=== PATIENT | male | born 1945 | race Caucasian/White ===

== ENCOUNTER 2020-11-18 13:47 | Outpatient (CLI) | payer MEDICARE, SELFPAY ==
--- NOTE | 2020-11-18 14:54 | ECG_ITS ---
Measurements Intervals [place] Rate: 65 P: 43 IA: 163 QRS: -66 QRSD: 157 T: 29 QT: 462 QTc: 483 Interpretive Statements SINUS RHYTHM ATRIAL PREMATURE COMPLEXES POSSIBLE LEFT ATRIAL ENLARGEMENT RIGHT BUNDLE BRANCH BLOCK LEFT ANTERIOR FASCICULAR BLOCK LEFT VENTRICULAR HYPERTROPHY AND ST-T CHANGE BASELINE ARTIFACT- I, II, III, AVR, AVL, AVF ABNORMAL ECG Electronically Signed On 11-18-2020 15:46:30 CDT by Dell Trejo D.O.
[2020-11-18 15:29] LABS: Anion Gap 6 mmol/L (8-16); Blood Urea Nitrogen 14 mg/dL (9-20); Calcium 9.3 mg/dL (8.4-10.2); Carbon Dioxide 30 mmol/L (22-30); Chloride 105 mmol/L (98-107); Estimated Glomerular Filt Rate > 60; Glucose 95 mg/dL (75-110); Potassium 3.8 mmol/L (3.4-5.0); Sodium 141 mmol/L (137-145)
== END 2020-11-18 13:48 | disposition home or self-care (01) ==
LOC: ANHSURGERY 13:48
PROVIDERS: Anesthesiology; PCP Family Medicine; Visit Provider Urology
DX: N39.3 Stress incontinence (female) (male) (principal); I45.2 Bifascicular block; Z51.81 Encounter for therapeutic drug level monitoring; Z79.899 Other long term (current) drug therapy; I10 Essential (primary) hypertension
CPT/HCPCS: 36415; 80048; 83036; 87086; 93005

== ENCOUNTER → 2020-12-03 00:47 | Outpatient (CLI) | payer MEDICARE, SELFPAY ==
[2020-12-03 16:46] LABS: SARS-CoV-2 RNA PCR Negative
== END ==
PROVIDERS: PCP Family Medicine; Visit Provider Urology
DX: Z01.812 Encounter for preprocedural laboratory examination (principal); Z20.822 Contact with and (suspected) exposure to COVID-19
CPT/HCPCS: C9803; U0003; U0005

== ENCOUNTER 2020-12-07 01:10 | Day surgery (SDC) | payer MEDICARE, SELFPAY ==
[2020-11-18 13:57] VITALS: BMI 37.0
[2020-11-18 14:16] VITALS: BP 148/81; PULSE 61; RESP 16; TEMP 37.1; O2SAT 100
[2020-12-07] VITALS (11 sets, daily range): BP systolic 119–149; BP diastolic 55–88; PULSE 77–97; RESP 15–21; TEMP 36.1–36.8; O2SAT 94–100; BMI 34.4
[2020-12-07] MEDS: LACTATED RINGERS 1,000 ML 30 ML IV CONT ×2 (10:31→17:26)
[2020-12-07] MEDS: metroNIDAZOLE 500 MG/ISO 100ML 500 MG/100 ML BAG 100 MG IVPB (10:39)
[2020-12-07] MEDS: GENTAMICIN SULFATE INJ 460 MG in DEXTROSE 5% 100 ML 97.05 MG IVPB (10:58)
--- NOTE | 2020-12-07 11:29 | WPDANESEPPF ---
Anes - Initial Pre Proc Eval Procedure: Operation Date: 12/07/20 12:00 Proposed Procedures p Insertion Inflatable Penile Implant - Felice Slater MD s Advanced Male Sling - Felice Slater MD Date/Time: 12/07/20 11:29 Surgeon: Felice Slater MD Pre Op Diagnosis: stress incontinence, erectile dysfunction Patient Data Age: 75 Gender: M Height: 1.79 m Weight: 110.6 kg Last Vital Signs Temp 98.7 F 11/18/20 14:16 Pulse 61 11/18/20 14:16 Resp 16 11/18/20 14:16 BP 148/81 H 11/18/20 14:16 Pulse Ox 100 11/18/20 14:16 Allergies Allergy/AdvReac Type Severity Reaction Status Date / Time No Known Allergies Allergy Verified 12/07/20 10:21 Home Medications Medication Instructions Recorded Confirmed Type cetirizine [Zyrtec] 10 mg PO DAILY 11/18/20 12/07/20 History fluticasone propionate [Flonase 1 spray INTRANASAL DAILY 11/18/20 12/07/20 History Allergy Relief] ibuprofen [Advil] 400 mg PO Q6H PRN 11/18/20 12/07/20 History lisinopril-hydrochlorothiazide 1 tablet PO DAILY 11/18/20 12/07/20 History pravastatin 20 mg PO DAILY 11/18/20 12/07/20 History levofloxacin 500 mg PO DAILY 12/07/20 12/07/20 History Patient hx anesthesia problems: none Family hx anesthesia problems: none PMFSH Past Medical History Medical History (Updated 12/07/20 @ 11:09 by Guillermo Gabriel MD) CAD (coronary artery disease) h/o ablation for SVT Hyperlipidemia Hypertension Surgical History Surgical History (Updated 12/07/20 @ 11:09 by Guillermo Gabriel MD) S/P prostatectomy Family History Family History (Updated 01/14/14 @ 07:13 by DOCTOR UNKNOWN) Other Cerebrovascular accident Social History Social History Smoking packs per day: 1 Smoking cigarettes per day: 20.0 Years smoked: 15 Smoking pack-years: 15.00 Smoking status: Former smoker Tobacco type: cigarettes Smoking end date: 05/20/95 Alcohol intake: current Drinks per week: 4 Living arrangements: with family Spiritual care concerns: No Anes - Eval Final PreProcedure Day of Procedure 12/07/20 11:29 Patient weight: obese Heart: regular rate and rhythm Lungs: clear to auscultation Airway: Mallampati scale class II Neurological: alert and oriented Last oral intake: >/= 8 hours Emergent: no Anesthetic plan: proceed Anesthesia type and monitoring: general LMA and standard monitoring Informed Consent: The patient's anesthetic plan and its attendant risks and benefits were discussed with the patient/family/POA. Questions were solicited and answers provided to the satisfaction of the patient/family/POA.
--- NOTE | 2020-12-07 12:01 | WPDHPUPDATE1 ---
History and Physical Update Update Date/Time: 12/07/20 12:01 History and Physical has been reviewed, including an updated exam of the patient. There are NO changes in the patient's condition. Risks, benefits, and alternatives have been discussed and questions answered. Patient agrees to proceed with procedure.
[2020-12-07] MEDS: BUPIVACAINE HCL 0.25% PF 30 ML VIAL INFILTRATE (13:56)
--- NOTE | 2020-12-07 17:45 | W.PM.PROC2 ---
Procedure Note - Detailed Date of Procedure 12/07/20 Pre-op Diagnosis stress incontinence, erectile dysfunction Post-op Diagnosis same Procedure Performed Placement of AMS Advance male sling, Penile prosthesis insertion, artificial erection with pharmacoagent, Cystoscopy. Surgeon Felice Slater MD Anesthesia general Description of Procedure Informed consent was obtained. The patient was taken to the operating room and given preoperative IV antibiotics with vancomycin and gentamicin, the patient has received oral Levaquin for the past 48 hours at home, and has done a 3-day Hibiclens wash. The patient was induced with general anesthesia. We then shaved, and the patient received a Betadine scrub followed by ChloraPrep. The patient was in the dorsal lithotomy position. Drapes were placed and then again prepped with Chloraprep. A 16-Sudanese Schaffer catheter was inserted. We made a 3 cm incision in the perineum. We then dissected down and identified the bulbar spongiosis muscle. The muscle layer was opened. We identified the urethra and it was mobilized laterally as well as proximally. We did take down the central tendon for approximately 2 cm. This allowed mobilization of the urethra. We then irrigated copiously.We secured the mesh to the spongiosum with 3-0 Vicryl suturewith the proximal end at point of dissection of central tendon. We used the Advance trocar passers to place the sling through the obturator foramen. There was good positioning noted. The catheter was removed. We then performed flexible cystoscopy. We inspected the urethra in the bladder. There was no injury from sling placement. We then tightened the sling. We did note that the sling did compress nicely. A 14-F Schaffer catheter was inserted.?We then irrigated copiously. We then closed bulbar spongiosis with a 2-0 Vicryl suture. We then tunneled the arms of the sling into the perineal incision. We performed multiple layers of closure with 3-0 Vicryl suture and the skin was closed with a 3-0 Vicryl horizontal mattress. We reapproximated the skin at the stab incisions for placement of the trocars with?4-0 Monocryl. We then performed a pharmacologically induced erection with dilute lidocaine. There was a symmetric, straight erection. We then made a penoscrotal 3 cm transverse incision. We dissected bluntly down to identify the corporal bodies taking great care not to injure the urethra. Stay sutures of 2-0 PDS were placed in the corporal body. We sharply opened the corpora. We then serially dilated up to a 12 Qiu dilator. of note there was a significant corporal fibrosis bilaterally. We then measured the corpora. Measurements were 9.5 cm proximally and 9.5 cm distally. We irrigated and there was no injury. We then performed an identical procedure on the contralateral side. Measurements were 9.5 cm proximal, 9.5 cm distal. Dilators were placed into the corpora bilaterally confirming that there was no crossover. We elected to place an AMS LGX device 18 cm + 1 cm of rear tip extenders. We again irrigated the corporal bodies. We then inserted the prosthesis. We inflated using a surrogate reservoir and the device sat nicely with tips in the mid glans. We then deflated. We then closed the pre-placed 2-0 PDS sutures. We again inflated using the surrogate reservoir with an excellent cosmetic result. We then made a right lower quadrant incision for approximately 2 cm. We bluntly dissected down to the external oblique fascia. The fascia was opened. We then the rectus muscle and created a space superiorly in the sub rectus. We emptied the bladder prior to our incision. We then irrigated copiously. We pre-placed 0 Vicryl sutures. We placed the reservoir in the sub rectus space. We fill it with 110 mL and there was no back pressure. We then left 85 mL in the reservoir. Our pre-placed external oblique fascia sutures were closed. We then made a subdartos pouch in the midline for the pump placement. It sat nicely in th
[2020-12-07] MEDS: fentaNYL CITRATE INJ (*CRX) 100 MCG/2 ML VIAL 25 MCG IV PUSH ×2 (18:12→18:18)
--- NOTE | 2020-12-07 19:17 | SUR.PHASEI ---
complains right eye pain right eye reddened,called ramses terrell ,orders for corneal abrasion protocol obtained.
[2020-12-07] MEDS: PROPARACAINE HCL 0.5% 15 ML OPHTH SOLN 1 DROP EACH EYE (19:25)
[2020-12-07] MEDS: ARTIFICIAL TEARS OPHTH SOLN 15 ML BOTTLE 1 DROP EACH EYE (19:28)
--- NOTE | 2020-12-07 19:40 | ADMGEN ---
This patient, Calixto Alanis, was admitted to Medical Room 346-01. Patient/family oriented to hospital policies and general routines including ID bracelet, bed and alarms, visiting hours, pain management, procedures, bathroom and other care routines, personal items, smoking policy, room service/diet, and visiting hours. Information on how to activate the Rapid Response Team has been discussed. Patient/Family are encouraged to report perceived risks to care and to ask questions if they do not understand what they are told or what they should do.
[2020-12-07] MEDS: MORPHINE SULFATE (*CRX) 2 MG/ML INJ IV PUSH ×2 (20:47→23:22)
[2020-12-07] MEDS: DEXTROSE 5%/0.45% SOD CHL 1,000 ML 125 ML IV CONT (20:48)
[2020-12-07] MEDS: DICLOFENAC SODIUM 0.1% OPHTH SOLN 2.5 ML BOTTLE 1 DROP EACH EYE (23:18)
[2020-12-08 00:26] VITALS: BP 137/65; PULSE 97; RESP 16; TEMP 36.6; O2SAT 100
[2020-12-08 01:17] VITALS: O2SAT 100
[2020-12-08 05:00] VITALS: BP 153/69; PULSE 94; RESP 16; TEMP 36.8; O2SAT 100
[2020-12-08] MEDS: DEXTROSE 5%/0.45% SOD CHL 1,000 ML 125 ML IV CONT (05:26)
[2020-12-08] MEDS: MORPHINE SULFATE (*CRX) 2 MG/ML INJ IV PUSH ×2 (05:26→08:20)
[2020-12-08] MEDS: DICLOFENAC SODIUM 0.1% OPHTH SOLN 2.5 ML BOTTLE 1 DROP EACH EYE (05:28)
[2020-12-08 07:23] VITALS: BP 144/63; PULSE 84; RESP 18; TEMP 36.2; O2SAT 99
[2020-12-08] MEDS: DOCUSATE SODIUM 100 MG CAPSULE PO (08:22)
[2020-12-08] MEDS: PRAVASTATIN SODIUM 20 MG TABLET PO (08:23)
[2020-12-08] MEDS: hydroCHLOROthiazide 25 MG TABLET PO (08:23)
[2020-12-08] MEDS: lisinopriL 20 MG TABLET PO (08:23)
[2020-12-08] MEDS: levoFLOXacin 500 MG TABLET PO (08:23)
[2020-12-08] MEDS: LORATADINE 10 MG TABLET PO (08:23)
[2020-12-08] MEDS: ONDANSETRON INJ 4 MG/2 ML VIAL IV PUSH (08:58)
--- NOTE | 2020-12-08 09:05 | WPDUROPN2 ---
Progress Note: A&P Assessment and Plan (1) Erectile dysfunction: Code(s): N52.9 - Male erectile dysfunction, unspecified Status: Acute Assessment and Plan: Patient will keep scrotal support applied with penis in an upward facing direction to reduce edema. Penile implant is partially inflated to promote optimal healing. Nicole removed, encouraged fluids to induce independent urination. Encourage patient to eat and drink fluids to see if he can tolerate his diet. Up to chair. If he tolerates diet and is able to urinate, will plan to discharge home this afternoon. (2) Stress incontinence: Code(s): N39.3 - Stress incontinence (female) (male) Status: Acute Subjective Subjective Date/Time Seen: 12/08/20 09:05 POD #1 Placement of AMS Advance male sling, Penile prosthesis insertion, artificial erection with pharmacoagent, Cystoscopy. Patient doing well, he is up in the chair this morning, slightly nauseated and having pain, which seems to be tolerable with pain medications. He hasn't attempted breakfast at this point. I removed his nicole and dressing, all incisions are approximated, no drainage or edema/redness present. He has a scrotal support applied. Review of Systems Cardiovascular: Cardiovascular: Reports no additional cardiovascular complaints and Denies chest pain Respiratory: Respiratory: Reports no additional respiratory complaints Gastrointestinal: Gastrointestinal: Reports abdominal pain, Reports nausea and Denies vomiting Genitourinary: Genitourinary: Denies hematuria and Denies flank pain Exam Resp: Effort & Inspection: normal respiratory effort Cardio: Rate: regular rate GI: Inspection: incision (all are well approximated, no drainage, edema or redness) GI Palp: Yes Soft to palpation and Yes Tenderness to palpation present (GI) : General: Yes no CVA tenderness Urinary Catheter: Urinary Catheter: patent and draining and urine clear Extrem: General: no edema Objective Data Vital Signs Vital Signs: Vital Signs - 24 hr 12/07/20 10:22 12/07/20 17:26 12/07/20 17:40 Temperature 97.0 F L 98.3 F Pulse Rate 77 83 94 Respiratory Rate 18 15 21 H Blood Pressure 141/69 H 127/68 121/88 Pulse Oximetry 98 100 95 12/07/20 17:55 12/07/20 18:10 12/07/20 18:25 Temperature Pulse Rate 88 90 87 Respiratory Rate 19 18 16 Blood Pressure 121/88 125/55 L 125/55 L Pulse Oximetry 94 98 97 12/07/20 18:40 12/07/20 18:55 12/07/20 19:33 Temperature Pulse Rate 92 93 90 Respiratory Rate 20 19 16 Blood Pressure 119/70 131/55 L 131/66 Pulse Oximetry 99 100 98 12/07/20 20:00 12/07/20 21:47 12/08/20 00:26 Temperature 97.4 F L 97.9 F Pulse Rate 97 97 Respiratory Rate 16 16 Blood Pressure 149/69 H 137/65 Pulse Oximetry 98 100 100 12/08/20 01:17 12/08/20 05:00 12/08/20 07:23 Temperature 98.3 F 97.2 F L Pulse Rate 94 84 Respiratory Rate 16 18 Blood Pressure 153/69 H 144/63 H Pulse Oximetry 100 100 99 Intake/Output Intake/Output: Intake & Output 12/05/20 12/06/20 12/07/20 12/08/20 23:59 23:59 23:59 23:59 Intake Total 811.5 1450 Output Total 1440 400 Balance -628.5 1050 Meds/Results Medications: Active Medications Generic Name Dose Route Start Last Admin Trade Name Freq PRN Reason Stop Dose Admin Hydrocodone Bitart/Acetaminophen 1 tab 12/07/20 17:38 Hydrocodone/Acetaminophen (*Crx) 5-325 Mg Tablet PO Q4H PRN Pain Rated 1-6 Artificial Tears 1 drop 12/07/20 19:15 12/07/20 19:28 Artificial Tears Ophth Soln 15 Ml Bottle EACH EYE 1 drop Q2H PRN Administration Dry Eye(s) Diclofenac Sodium 1 drop 12/07/20 22:00 12/08/20 05:28 Diclofenac Sodium 0.1% Ophth Soln 2.5 Ml Bottle EACH EYE 12/11/20 22:01 1 drop Q8HR CONSUELO Administration Docusate Sodium 100 mg 12/08/20 09:00 12/08/20 08:22 Docusate Sodium 100 Mg Capsule PO 100 mg BID CONSUELO Administration Fentanyl Citrate 25 mcg 12/07/20 11:30
[2020-12-08 11:23] VITALS: BP 140/60; PULSE 86; RESP 18; TEMP 36.7; O2SAT 100
[2020-12-08] MEDS: HYDROcodone/acetaminophen (*CRX) 5-325 MG TABLET 1 TAB PO (11:24)
[2020-12-08] MEDS: GENTAMICIN 80MG/SOD CHL 50 ML 80 MG/50 ML BAG 100 MG IVPB (14:11)
[2020-12-08 14:12] VITALS: BP 132/59; PULSE 90; RESP 20; TEMP 37.2; O2SAT 98
== END 2020-12-08 16:16 | disposition home or self-care (01) ==
LOC: ANHSURGERY 09:58 → ANH3MED 19:38
PROVIDERS: PCP Family Medicine; Visit Provider Urology
PROC: (CPT 54405; principal; 2020-12-07 12:00)
PROC: (CPT 53440; 2020-12-07 12:00)
DX: N39.3 Stress incontinence (female) (male) (principal); N52.9 Male erectile dysfunction, unspecified; I25.10 Atherosclerotic heart disease of native coronary artery without angina pectoris; I10 Essential (primary) hypertension; E78.5 Hyperlipidemia, unspecified; Z87.891 Personal history of nicotine dependence; E66.9 Obesity, unspecified; Z68.34 Body mass index [BMI] 34.0-34.9, adult
CPT/HCPCS: 54405; 54235; 53440; A9270; C1771; C9803; J1100; J1170; J1580; J2250; J2270; J2405; J2704; J3010; J3370; J7030; J7120; U0003; U0005

== ENCOUNTER 2022-02-27 15:11 | Outpatient (CLI) | payer MEDICARE, SELFPAY ==
--- NOTE | ~2022-02-27 | XR_ITS ---
EXAMINATION: XR chest 2V DATE: 02/27/2022 15:35 INDICATION: Shortness of breath TECHNIQUE: PA and lateral views of the chest are obtained. COMPARISON: 05/30/2018 FINDINGS: There are airspace opacities of the right lung base. No pleural effusion or pneumothorax. T he cardiomediastinal silhouette is normal. There is mild thoracic spondylosis. IMPRESSION: 1. Right basilar airspace opacity which may be infectious or inflammatory versus atelectasis or less likely malignancy. Recommend followup radiographs in 10-14 days after appropriate therapy to evaluate for improvement/resolution. Reviewed, dictated and finalized at location A. IMPRESSION: 1. Right basilar airspace opacity which may be infectious or inflammatory versu s atelectasis or less likely malignancy. Recommend followup radiographs in 10-1 4 days after appropriate therapy to evaluate for improvement/resolution.
== END 2022-02-27 15:12 | disposition home or self-care (01) ==
PROVIDERS: PCP Family Medicine; Visit Provider Family Medicine
DX: R06.02 Shortness of breath (principal)
CPT/HCPCS: 71046

== ENCOUNTER 2022-02-28 15:41 | Inpatient (IN) | payer MEDICARE, SELFPAY ==
[2022-02-28] VITALS (11 sets, daily range): BP systolic 147–183; BP diastolic 53–75; PULSE 40–94; RESP 16–20; TEMP 36.4–36.9; O2SAT 94–100; BMI 36.6
--- NOTE | ~2022-02-28 | XR_ITS ---
EXAMINATION: XR chest 2V DATE: 03/03/2022 11:36 INDICATION: Pacer placement. TECHNIQUE: Frontal and lateral views of the chest were obtained. COMPARISON: Chest single view 03/02/2022 FINDINGS: A calcified left lung nodule is consistent with old granulomatous disease. No pleural effus ion or pneumothorax. The heart size is normal. There is a left chest wall pacer with leads in the rig ht atrium and right ventricle. IMPRESSION: 1. No acute cardiopulmonary disease. Reviewed, dictated and finalized at location A.
--- NOTE | ~2022-02-28 | US_ITS ---
EXAMINATION: US venous doppler [facility] DATE: 03/02/2022 16:41 INDICATION: Bilateral lower limb edema TECHNIQUE: Perales scale images without and with compression and Doppler images of the bilateral lower e xtremity veins were obtained. COMPARISON: None FINDINGS: The right common femoral vein, profunda femoral vein, femoral vein, popliteal vein, peroneal trunk, p osterior tibial veins, and greater saphenous vein are patent. The left common femoral vein, profunda femoral vein, femoral vein, popliteal vein, peroneal trunk, po sterior tibial veins, and greater saphenous vein are patent. IMPRESSION: 1. Patent bilateral lower extremity veins. No evidence of deep venous thrombosis. Reviewed, dictated and finalized at location F. IMPRESSION: 1. Patent bilateral lower extremity veins. No evidence of deep venous thrombosi s.
--- NOTE | ~2022-02-28 | XR_ITS ---
EXAMINATION: XR chest 2V Exam Date/Time: 02/28/2022 16:30 CDT HISTORY: EDEMA TO BOTH LEGS AND SOB X 3 DAYS. HX HTN, CAD Comparison: CT abdomen pelvis 07/29/2018. X-ray chest 02/27/2022 at 3:32 PM. RESULT: Lines, tubes, and devices: None. Lungs and pleura: Improving aeration of the right lung base. Persistent diffuse reticulonodular opac ities. Cardiomediastinal silhouette: Stable. Other: No acute osseous or upper abdominal finding. IMPRESSION: Improving right lung base aeration indicating a likely component of atelectasis. Underlying diffuse r eticulonodular opacities may reflect interstitial edema and/or bronchiolitis. Reviewed, dictated and finalized at location K. IMPRESSION: Improving right lung base aeration indicating a likely component of atelectasis . Underlying diffuse reticulonodular opacities may reflect interstitial edema a nd/or bronchiolitis.
--- NOTE | ~2022-02-28 | XR_ITS ---
XR chest 1V portable 03/02/2022 11:43 Indication: Pacemaker insertion Procedure: AP portable chest Comparison: 02/28/2022 Findings: Cardiomegaly. Prominent central pulmonary vascularity. There are are perihilar and basilar interstitial infiltrates with peribronchial thickening. No pleural effusion or pneumothorax. Pacemake r leads in the right atrium and right ventricle respectively. Impression: 1: Bilateral perihilar and basilar interstitial infiltrates which may reflect mild edema or atypical pneumonia. Reviewed, dictated and finalized at location A. Impression: 1: Bilateral perihilar and basilar interstitial infiltrates which may reflect m ild edema or atypical pneumonia.
--- NOTE | ~2022-02-28 | CT_ITS ---
EXAMINATION: CTA chest PE protocol DATE: 02/28/2022 18:27 INDICATION: sob TECHNIQUE: Computed tomography angiography (CTA) of the chest was performed with 100 mL Omnipaque-350 intravenous contrast timed to evaluate the pulmonary arteries. Coronal maximum intensity projection 3D-reconstructions were created by the technologist. The dose-length product (DLP) was 880.04 mGy-cm. Automated exposure control and iterative reconstruction technique were employed. COMPARISON: X-ray chest, same date. FINDINGS: Lung parenchyma and airways: Bibasilar dependent atelectasis/scar. Bilateral lower lung groundglass o pacities with mild interlobular septal thickening. Pleura: Small volume bilateral pleural fluid collections. Thoracic inlet, axillae and chest wall: Bilateral gynecomastia. Thoracic aorta: Mild arch calcification. Mediastinum: Normal. Heart and pericardium: Mild cardiomegaly. Aortic valve calcification. Coronary artery calcifications: Moderate. Upper abdomen: No significant finding. Bones: No acute osseous finding. Pulmonary arteries: Study quality: Adequate. No pulmonary emboli detected. IMPRESSION: No CT evidence of acute pulmonary embolus. Pulmonary findings most consistent with mild interstitial edema. Small bilateral effusions. Reviewed, dictated and finalized at location K. IMPRESSION: No CT evidence of acute pulmonary embolus. Pulmonary findings most consistent w ith mild interstitial edema. Small bilateral effusions.
--- NOTE | 2022-02-28 15:42 | ECG_ITS ---
Measurements Intervals [place] Rate: 58 P: -5 VT: 208 QRS: -62 QRSD: 144 T: 102 QT: 419 QTc: 414 Interpretive Statements SINUS BRADYCARDIA WITH FREQUENT SUPRAVENTRICULAR PREMATURE COMPLEXES AND NONCONDUCTED APCS. POSSIBLE LEFT ATRIAL ENLARGEMENT [-0.1mV P WAVE IN V1/V2] RIGHT BUNDLE BRANCH BLOCK [120+ ms QRS DURATION, UPRIGHT V1, 40+ ms S IN I/aVL/V4/V5/V6] LEFT ANTERIOR FASCICULAR BLOCK [QRS AXIS <= -45, QR IN I, RS IN II] LEFT VENTRICULAR HYPERTROPHY AND ST-T CHANGE [VOLTAGE CRITERIA PLUS ST/T ABNORMALITY] POOR R-WAVE PROGRESSION, POSSIBLE OLD ANTERIOR MYOCARDIAL INFARCTION COMPARED TO ECG 11/18/2020 15:05:30 SINUS BRADYCARDIA NOW PRESENT Electronically Signed On 02-28-2022 19:54:17 CDT by Ivanna Muir M.D.
[2022-02-28 16:19] LABS: Basophils Percent Auto 0.5 % (0.2-1.2); Eosinophils Absolute Auto 0.1 K/mm3 (0-0.3); Eosinophils Percent Auto 1.6 % (0-4.4); Hematocrit 42.9 % (42.0-52.0); Hemoglobin 14.1 g/dL (14.0-18.0); Immature Granulocyte Absolute 0.03 K/mm3 (0.00-0.031); Immature Granulocyte Percent A 0.5 % (0-0.5); Lymphocytes Absolute Auto 1.32 K/mm3 (0.9-3.2); Mean Corpuscular HGB Conc 32.9 g/dl (32-36); Mean Corpuscular Hemoglobin 31.8 pg (26-34); Mean Corpuscular Volume 96.6 fl (80-100); Mean Platelet Volume 10.5 fl (7.4-10.4); Monocytes Absolute Auto 0.6 K/mm3 (0.1-0.6); Monocytes Percent Auto 9.2 % (2.6-8.5); Neutrophils Absolute Auto 4.2 K/mm3 (1.3-6.7); Neutrophils Percent Auto 67.2 % (45.5-73.1); Platelet Count Result 174 k/mm3 (150-375); Red Blood Count 4.44 M/mm3 (4.6-6.20); Red Cell Distribution Width 13.2 % (11.5-14.5); White Blood Count 6.3 K/mm3 (4.5-10.0)
[2022-02-28 16:31] LABS: Alanine Aminotransferase 30 U/L (6-50); Albumin Level 4.2 g/dL (3.5-5.1); Alkaline Phosphatase 61 U/L (38-126); Anion Gap 8 mmol/L (8-16); Aspartate Amino Transferase 31 U/L (17-59); Blood Urea Nitrogen 16 mg/dL (9-20); Calcium 9.3 mg/dL (8.4-10.2); Carbon Dioxide 28 mmol/L (22-30); Chloride 103 mmol/L (98-107); Estimated CRCL calculation 82 ml/min; Estimated Glomerular Filt Rate > 60; Glucose 131 mg/dL (65-110); Potassium 4.1 mmol/L (3.4-5.0); Sodium 139 mmol/L (137-145)
--- NOTE | 2022-02-28 17:03 | ED.SOB ---
HPI - SOB/Dyspnea General Chief Complaint: Shortness of Breath/Dyspnea Stated Complaint: sob, leg swelling - recent mi Time Seen by Provider: 02/28/22 16:13 Source: patient and RN notes reviewed Mode of arrival: ambulatory Limitations: no limitations History of Present Illness HPI Narrative: This is a 76 year old male with history of hyperlipidemia and hypertension who presents for evaluation of shortness of breath and leg swelling. He states over 1 week ago he was having shortness of breath and chest heaviness with exertion. He thought it was due to allergies and he tested negative for COVID. He developed bilateral leg swelling 3 days ago with orthopnea, shortness of breath with exertion. He was evaluated by his PCP yesterday, and he was started on lasix and potassium. MD elicited complaint: shortness of breath Related Data Home Medications Medication Instructions Recorded Confirmed cetirizine 10 mg tablet (Zyrtec) 10 mg PO DAILY PRN Allergy Symptoms 11/18/20 12/07/20 fluticasone propionate 50 1 spray intranasal DAILY PRN 11/18/20 12/07/20 mcg/actuation nasal Congestion spray,suspension (Flonase Allergy Relief) lisinopril 20 1 tablet PO DAILY 11/18/20 12/07/20 mg-hydrochlorothiazide 25 mg tablet pravastatin 20 mg tablet 20 mg PO DAILY 11/18/20 12/07/20 Allergies Allergy/AdvReac Type Severity Reaction Status Date / Time No Known Allergies Allergy Verified 12/07/20 20:22 Review of Systems Review of Systems: All systems reviewed & are unremarkable except as noted in HPI and below Constitutional: Constitutional: Denies chills, Denies fatigue and Denies fever(s) ENT: Denies nasal congestion and Denies sore throat Cardiovascular: Cardiovascular: Reports chest pain, Reports leg edema, Denies radiating jaw, neck or arm pain and Reports orthopnea Respiratory: Respiratory: Reports dyspnea and Reports dyspnea on exertion PMFSH Past Medical History Medical History CAD (coronary artery disease) h/o ablation for SVT Hyperlipidemia Hypertension Surgical History Surgical History (Updated 12/07/20 @ 20:37 by Leila Fong, TYSON) S/P prostatectomy Family History Family History Other Cerebrovascular accident Social History Social History (Updated 12/07/20 @ 20:37 by Leila Fong RN) Smoking packs per day: 1 Smoking cigarettes per day: 20.0 Years smoked: 15 Smoking pack-years: 15.00 Smoking status: Former smoker Tobacco type: cigarettes Alcohol intake: current Drinks per week: 4 Substance use: never Gender identity (if verbalized by the patient): Male Spiritual care concerns: No Exam Const: General: no acute distress and alert Nutritional Appearance: well nourished Orientation/consciousness: patient oriented x3 HENMT: Head: normal to inspection Eyes: EOM: EOMs intact bilaterally Resp: Effort & Inspection: normal respiratory effort Auscultation: crackles bilateral at the base Cardio: Rate: bradycardic Rhythm: regular rhythm Heart sounds: no murmurs GI: GI Palp: Yes Soft to palpation, No Tenderness to palpation present (GI), No Guarding due to palpation present (GI) and No Rigid due to palpation Auscultation: normal bowel sounds Skin: General skin exam: normal color Rashes: no rashes Wounds: no wounds Neuro: General: patient oriented x3, moves all extremities and CN's II-XI intact bilaterally Cranial nerves: Yes Nystagmus not present Speech: normal speech Extrem: General: edema bilateral (pedal and leg) Psych: Mental Status: mental status grossly normal Affect: normal affect Attitude: cooperative Course Reevaluation(s) Reevaluation #1: I Discussed case with Dr. Castillo who accepts patient to hospitalist. Dr. Muir agrees to consult and recommends lasix 40 mg BID. I Discussed EKG. PAtient understands and he has no ad
[2022-02-28 17:35] LABS: INR 1.2; Partial Thromboplastin Time 32.4 SECONDS (22.3-36.8); Prothrombin Time 14.3 Seconds (11.1-14.7)
[2022-02-28 17:40] LABS: NT Pro B Type Natriuretic Pept 1180 pg/mL (5-100)
[2022-02-28 17:43] LABS: Troponin I < 0.012 ng/mL (0.000-0.034)
[2022-02-28 17:44] LABS: D Dimer 0.76 ug/mL (<0.48)
--- NOTE | 2022-02-28 19:19 | PM.IMHP ---
H&P: HPI History of Present Illness Date/Time: 02/28/22 19:19 Chief Complaint: 76 years old male with past medical history of hypertension hyperlipidemia erectile dysfunction presented to the hospital with shortness of breath started 1 week ago worsening with activity associated with orthopnea patient also complained of bilateral lower extremity swelling worsening gradually associated with chest tightness with activity EKG in the ER showed bradycardia with concern for heart block CT scan of the chest shows concern pulmonary edema BNP was significantly elevated cardiology was consulted patient was started on IV Lasix patient will admit to the hospital for further evaluation treatment of shortness of breath and bradycardia Review of Systems Review of Systems: Twelve system review was negative except above PMFSH Past Medical History Medical History (Updated 02/28/22 @ 19:23 by Jo Scott MD) CAD (coronary artery disease) h/o ablation for SVT Hyperlipidemia Hypertension Surgical History Surgical History (Updated 12/07/20 @ 20:37 by Leila Fong RN) S/P prostatectomy Family History Family History Other Cerebrovascular accident Social History Social History (Updated 12/07/20 @ 20:37 by Leila Fnog RN) Smoking packs per day: 1 Smoking cigarettes per day: 20.0 Years smoked: 15 Smoking pack-years: 15.00 Smoking status: Former smoker Tobacco type: cigarettes Alcohol intake: current Drinks per week: 4 Substance use: never Gender identity (if verbalized by the patient): Male Spiritual care concerns: No Meds Home Medications and Allergies Home Medications Medication Instructions Recorded Confirmed Type cetirizine 10 mg tablet (Zyrtec) 10 mg PO DAILY PRN Allergy Symptoms 11/18/20 12/07/20 History fluticasone propionate 50 1 spray intranasal DAILY PRN 11/18/20 12/07/20 History mcg/actuation nasal Congestion spray,suspension (Flonase Allergy Relief) lisinopril 20 1 tablet PO DAILY 11/18/20 12/07/20 History mg-hydrochlorothiazide 25 mg tablet pravastatin 20 mg tablet 20 mg PO DAILY 11/18/20 12/07/20 History cephalexin 500 mg capsule 500 mg PO Q8H #21 caps 12/08/20 Rx docusate sodium 100 mg capsule 100 mg PO BID #14 caps 12/08/20 Rx hydrocodone 5 mg-acetaminophen 325 1 tablet PO Q6H PRN pain #20 tabs 12/08/20 Rx mg tablet Allergies Allergy/AdvReac Type Severity Reaction Status Date / Time No Known Allergies Allergy Verified 12/07/20 20:22 Vital Signs Vital Signs - 24 hr 02/28/22 15:48 02/28/22 17:12 Temperature 97.7 F Pulse Rate 78 57 L Respiratory Rate 20 18 Blood Pressure 175/56 H 147/63 H Pulse Oximetry 99 100 Oxygen Delivery Room Air Exam Narrative: GENERAL: In acute distress. HEAD: Normocephalic, atraumatic. NECK: Supple. No adenopathy, no masses. RESPIRATORY: Decreased air entry bilateral positive crackles CARDIOVASCULAR: Regular rate and rhythm without murmurs, rubs, or gallops. Peripheral pulses 2+ and equal bilaterally. ABDOMINAL: Soft, nontender, nondistended, no hepatosplenomegaly. Normoactive BS. MUSCULOSKELETAL: Positive lower extremity edema SKIN: Warm, dry, normal color. No rashes. NEURO: A&O X3. Speech clear. Cranial nerves intact also all extremities PSYCHIATRIC: Appropriate mood and affect. Normal interaction. H&P: Results Labs Labs: Short CBC 02/28/22 Range/Units 16:14 WBC 6.3 (4.5-10.0) K/mm3 Hgb 14.1 (14.0-18.0) g/dL Hct 42.9 (42.0-52.0) % Plt Count 174 (150-375) k/mm3 BMP 02/28/22 16:14 Sodium 139 Potassium 4.1 Chloride 103 Carbon Dioxide 28 BUN 16 Creatinine 0.90 Glucose 131 H Calcium 9.3 Cardiac Enzymes 02/28/22 Range/Units 16:14 Troponin I < 0.012 (0.000-0.034) ng/mL Liver Function 02/28/22 Range/Units 16:14 Total Bilirubin 1.0 (0.2-1.3) mg/dL AST 31 (17-59) U/L
[2022-02-28 20:12] LABS: Magnesium 2.1 mg/dL (1.6-2.3)
[2022-02-28 20:28] LABS: Troponin I 0.016 ng/mL (0.000-0.034)
[2022-02-28 20:32] LABS: SARS-CoV-2 RNA PCR Negative
[2022-02-28] MEDS: SIMVASTATIN 20 MG TABLET PO (21:46)
[2022-02-28] MEDS: ASPIRIN 81 MG ENTERIC TABLET PO (21:46)
--- NOTE | 2022-02-28 22:15 | ADMGEN ---
This patient, Calixto Alanis, was admitted to Medical Room 259-. Patient/family oriented to hospital policies and general routines including ID bracelet, bed and alarms, visiting hours, pain management, procedures, bathroom and other care routines, personal items, smoking policy, room service/diet, and visiting hours. Information on how to activate the Rapid Response Team has been discussed. Patient/Family are encouraged to report perceived risks to care and to ask questions if they do not understand what they are told or what they should do.
--- NOTE | 2022-02-28 22:27 | ECG_ITS ---
Measurements Intervals [place] Rate: 49 P: OR: 0 QRS: -68 QRSD: 150 T: 73 QT: 502 QTc: 453 Interpretive Statements 2:1 AV BLOCK ABERRANTLY CONDUCTED ATRIAL PREMATURE COMPLXS RIGHT BUNDLE BRANCH BLOCK [120+ ms QRS DURATION, UPRIGHT V1, 40+ ms S IN I/aVL/V4/V5/V6] COMPARED TO ECG 02/28/2022 16:09:57 2:1 AV BLOCK IS PRESENT Electronically Signed On 03-01-2022 14:37:38 CDT by Rafia Arango M.D.
[2022-02-28] MEDS: FUROSEMIDE INJ 40 MG/4 ML VIAL IV PUSH (22:44)
[2022-02-28 22:54] LABS: Troponin I 0.019 ng/mL (0.000-0.034)
--- NOTE | 2022-02-28 23:41 | PC.NURSE ---
Pt Calixto Alanis will be transferred to IMU Room 213 for closer monitoring. Report given to Shanae in IMU.
--- NOTE | 2022-02-28 23:54 | PC.NURSE ---
Transferred pt by bed to IMU Room 214.
[2022-03-01] VITALS (14 sets, daily range): BP systolic 154–167; BP diastolic 50–72; PULSE 42–66; RESP 14–20; TEMP 36.3–37.2; O2SAT 95–100
--- NOTE | 2022-03-01 00:50 | PC.NURSE ---
This patient, Calixto Alanis, was received from [[id number] ] on 02/28/22 at 2347. Patient/family oriented to unit policies and routines
[2022-03-01] MEDS: ALBUTEROL SULFATE NEB 2.5 MG/3 ML INH INHALATION (02:00)
[2022-03-01 04:53] LABS: Basophils Absolute Auto 0.1 K/mm3 (0.0-0.1); Basophils Percent Auto 0.6 % (0.2-1.2); Eosinophils Absolute Auto 0.1 K/mm3 (0-0.3); Hematocrit 44.8 % (42.0-52.0); Hemoglobin 15.1 g/dL (14.0-18.0); Immature Granulocyte Absolute 0.03 K/mm3 (0.00-0.031); Immature Granulocyte Percent A 0.3 % (0-0.5); Lymphocytes Absolute Auto 1.83 K/mm3 (0.9-3.2); Lymphocytes Percent Auto 20.9 % (18.3-44.2); Mean Corpuscular HGB Conc 33.7 g/dl (32-36); Mean Corpuscular Hemoglobin 32.3 pg (26-34); Mean Corpuscular Volume 95.9 fl (80-100); Mean Platelet Volume 10.8 fl (7.4-10.4); Monocytes Absolute Auto 0.9 K/mm3 (0.1-0.6); Monocytes Percent Auto 10.3 % (2.6-8.5); Neutrophils Absolute Auto 5.9 K/mm3 (1.3-6.7); Neutrophils Percent Auto 66.9 % (45.5-73.1); Platelet Count Result 204 k/mm3 (150-375); Red Blood Count 4.67 M/mm3 (4.6-6.20); Red Cell Distribution Width 13.2 % (11.5-14.5); White Blood Count 8.8 K/mm3 (4.5-10.0)
[2022-03-01 05:14] LABS: Alanine Aminotransferase 28 U/L (6-50); Albumin Level 4.2 g/dL (3.5-5.1); Alkaline Phosphatase 68 U/L (38-126); Anion Gap 6 mmol/L (8-16); Aspartate Amino Transferase 28 U/L (17-59); Bilirubin,Total 1.2 mg/dL (0.2-1.3); Blood Urea Nitrogen 15 mg/dL (9-20); Calcium 9.5 mg/dL (8.4-10.2); Carbon Dioxide 32 mmol/L (22-30); Chloride 100 mmol/L (98-107); Estimated CRCL calculation 73 ml/min; Estimated Glomerular Filt Rate > 60; Glucose 128 mg/dL (65-110); Sodium 138 mmol/L (137-145)
--- NOTE | 2022-03-01 08:00 | ECHO_ITS ---
Patient Info Name: Calixto Alanis Age: 76 years : 1945 Gender: Male Ht: 71 in Wt: 266 lbs BSA: 2.50 m2 HR: 43 bpm BP: 158 / 50 mmHg Heart Rhythm: Indeterminant Technical Quality: Fair Exam Date: 03/01/2022 11:39 AM Exam Location: [facility] Pulmonary Exam Room: 214 Patient Status: Inpatient Admit Date: 02/28/2022 Staff Ordering Physician: Jo Scott M.A., MD Package Lift Operator: Vani Williamson RDCS Attending Provider: Jo Scott M.A., MD Referring Physician: Fabricio CHUNG; Exam Type: CA echo dop color flow w con Study Info Indications - CHF Complete two-dimensional, color flow and Doppler transthoracic echocardiogram is performed with contrast to opacify the left ventricle and to improve the deliniation of the left ventricle endocardial borders. Contrast/Agitated Saline Contrast/Ag. Saline: Definity Amount: 2.00 ml Administered By: Vani Williamson [facility] Existing IV Access: Yes IV Access Condition: patent with no signs of infiltration Summary 1. Normal with mild concentric hypertrophy. Good systolic function of segments. Calculated ejection fraction 59%, visually ejection fraction 55-60%. Grade 2 diastolic dysfunction is present. 2. Left atrial chamber dimension is moderately enlarged. 3. There is mild aortic valve calcification with mild aortic insufficiency but no stenosis. 4. There is mild mitral valve regurgitation. 5. Mild pulmonary hypertension, estimated pulmonary arterial systolic pressure is 48 mmHg. 6. There is mild pulmonic regurgitation. 7. Rhythm indeterminate. 8. Technically difficult study, definity echo contrast used. Left Ventricle Left ventricular chamber dimension is normal. Left ventricular systolic function is normal, estimated at 55-60%. There is mildly increased left ventricular wall thickness. Left ventricular septal wall motion is normal. The left ventricular diastolic function is grade II diastolic dysfunction. Right Ventricle Right ventricular chamber dimension is normal. Right ventricular systolic function is normal. Left Atria Left atrial chamber dimension is moderately enlarged. Right Atria Right atrial chamber dimension is normal. Aortic Valve The aortic valve is trileaflet. There is no aortic valve sclerosis. There is no aortic valve stenosis. There is mild aortic valve regurgitation. There is mild aortic valve calcification with mild aortic insufficiency but no stenosis. Pulmonic Valve The pulmonic valve is normal. There is no pulmonic valve stenosis. There is mild pulmonic regurgitation. Mitral Valve The mitral valve has normal leaflets. There is no mitral valve stenosis. There is mild mitral valve regurgitation. Tricuspid Valve The tricuspid valve leaflets are normal. There is no significant tricuspid valve stenosis. There is trace tricuspid valve regurgitation. Mild pulmonary hypertension, estimated pulmonary arterial systolic pressure is 48 mmHg. Pericardium/Pleural The pericardium appears normal. There is no pericardial effusion. Inferior Vena Cava Normal inferior vena cava with >50% collapse upon inspiration consistent with Empty right atrial pressure, 10 mmHg. Aorta The aortic root size at the sinus of Valsalva is normal. The prox ascending aorta size is normal. Left Ventricular Outflow Tract Name
--- NOTE | 2022-03-01 08:25 | ECG_ITS ---
Measurements Intervals [place] Rate: 48 P: 49 WV: 211 QRS: -63 QRSD: 150 T: 46 QT: 557 QTc: 500 Interpretive Statements 2:1 AV BLOCK ABERRANTLY CONDUCTED ATRIAL PREMATURE COMPLXS POSSIBLE LEFT ATRIAL ENLARGEMENT [-0.1mV P WAVE IN V1/V2] LEFT ANTERIOR FASCICULAR BLOCK [QRS AXIS <= -45, QR IN I, RS IN II] LEFT VENTRICULAR HYPERTROPHY AND ST-T CHANGE [VOLTAGE CRITERIA PLUS ST/T ABNORMALITY] INFERIOR MYOCARDIAL INFARCTION , PROBABLY OLD COMPARED TO ECG 02/28/2022 22:37:56 NO SIGNIFICANT CHANGE Electronically Signed On 03-01-2022 15:53:46 CDT by Rafia Arango M.D.
[2022-03-01] MEDS: SIMVASTATIN 20 MG TABLET PO (08:55)
[2022-03-01] MEDS: FUROSEMIDE INJ 40 MG/4 ML VIAL IV PUSH ×2 (08:55→16:33)
[2022-03-01] MEDS: ASPIRIN 81 MG ENTERIC TABLET PO (08:55)
[2022-03-01] MEDS: ENOXAPARIN 40 MG/0.4 ML SYRINGE SUB-Q (08:55)
[2022-03-01] MEDS: PERFLUTREN LIPID MICROSPHERES 1.5 ML VIAL DILUTED TO 10 ML TOTAL VOLUME IV PUSH (11:55)
--- NOTE | 2022-03-01 12:03 | PM.IMPN ---
Progress Note: A&P Assessment and Plan (1) Bradycardia: Code(s): R00.1 - Bradycardia, unspecified Status: Acute Assessment and Plan: Patient found to have bradycardia on admission. He has a hx of SVT s/p ablation 2013. He does not have known CAD. He is not on rate lowering agents. He denies JOSE or symptoms of such. 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 EKG on admission showing similar findings except now sinus bradycardia with frequent supraventricular PVC and nonconducted PACs. Cardiology consult. Check TSH. Check apnea link. Continue tele (2) CHF (congestive heart failure): Code(s): I50.9 - Heart failure, unspecified Status: Acute Assessment and Plan: Patient with increasing pedal edema and was started on lasix a few days ago. Most likely related to acute CHF exacerbation. Trop negative x3. Echo ordered. Cardiology consulted. Daily weights, strict intake and outputs, CHF teaching. Contineu IV Lasix. (3) Hypertension: Code(s): I10 - Essential (primary) hypertension Status: Acute Assessment and Plan: Patient's blood pressure was reviewed on 03/01 Blood pressure remains reasonably well controlled. Will continue current medications. Add back Lisinopril (4) Hyperlipidemia: Code(s): E78.5 - Hyperlipidemia, unspecified Status: Acute Assessment and Plan: LFTs normal. He does not have CAD. Continue statin Check lipids. Plan DVT prophylaxis: Lovenox Code status: Full Diet: NPO. Subjective Date/time seen: 03/01/22 12:03 Interval history: 76yo male with hx of SVT s/p ablation, HTN and HLD here for shortness of breath. Patient has not been on metoprolol or diltiazem. Home med list reviewed with patient. He was on lisinopril/HCTZ but MD stopped this 6 months ago because the patient was 'doing better'. More recently, jean has noted increasing leg edema. His MD put him back on lisinopril and added Lasix and K+ about 3 days ago. He can not lie flat but this is more chronic. Denies hx of JOSE or symptoms of JOSE. No CP or SOB currently Exam Narrative: AF 97.3 156/60 53 18 99% ra Gen - NARD lying semi-recumbent in bed Chest - few basilar crackles o/w clear. CV - IRR; Tele showing probably 2:1 block mostly and escape PVCs Abd - soft, NT/ND, +BS Ext - 1-2+ pitting pedal edema Neuro - nonfocal Skin - warm and dry Objective Data Vital Signs Vital Signs: Vital Signs - 24 hr 02/28/22 15:48 02/28/22 17:12 02/28/22 19:03 Temperature 97.7 F Pulse Rate 78 57 L Respiratory Rate 20 18 Blood Pressure 175/56 H 147/63 H 165/75 H Pulse Oximetry 99 100 97 Oxygen Delivery Room Air 02/28/22 19:35 02/28/22 19:45 02/28/22 21:17 Temperature Pulse Rate Respiratory Rate Blood Pressure Pulse Oximetry 97 99 94 Oxygen Delivery 02/28/22 21:19 02/28/22 21:30 02/28/22 21:31 Temperature Pulse Rate Respiratory Rate Blood Pressure 177/68 H 164/72 H Pulse Oximetry 96 94 97 Oxygen Delivery 02/28/22 22:06 02/28/22 23:15 02/28/22 23:45 Temperature 98.4 F 97.6 F Pulse Rate 94 40 L Respiratory Rate 16 16 Blood Pressure 183/71 H 152/53 H Pulse Oximetry 97 96 Oxygen Delivery Room Air 03/01/22 00:00 03/01/22 00:00 03/01/22 04:00 Temperature Pulse Rate 48 L 48 L 48 L Respiratory Rate 16 Blood Pressure Pulse Oximetry 96 Oxygen Delivery Room Air 03/01/22 04:00 03/01/22 02:00 03/01/22 02:10 Temperature Pulse Rate 48 L 46 L 42 L Respiratory Rate 16 18 18 Blood Pressure Pulse Oximetry 96 Oxygen Delivery Room Air 03/01/22 04:00 03/01/22 08:00 03/01/22 08:00 Temperature 97.4 F L 97.3 F L Pulse Rate 44 L 53 L 43 L Respiratory Rate 20 18 Blood Pressure 158/50 H 156/60 H Pulse Oximetry 95 99 Oxygen Delivery 03/01/22 08:00 03/01/22 10:00 03/01/22 11:32 Temperature Pulse Rate 53 L Respiratory Rate Blood Pressure Pulse O
--- NOTE | 2022-03-01 13:48 | PM.CNCAR ---
Assessment and Plan Assessment and plan (1) Second degree AV block, Mobitz type II: Code(s): I44.1 - Atrioventricular block, second degree Status: Acute Assessment and Plan: Patient, who has a longstanding underlying RBBB and LAFB, presents with intermittent and now persistent 2-1 heart block, heart rates generally in the 40s to 50s. Dropped down to the upper 30s last night while asleep. No dizziness or syncope I suspect this is the etiology of his congestive heart failure. Recommend pacemaker implant, which is scheduled for tomorrow. He likely will RV pace most of the time. Since he has good left ventricular function, he will not, at this point anyway, need a biventricular pacemaker, just a dual chamber pacemaker. Reviewed risks of pacemaker implant with patient and his These include breathing problems, allergic reactions, bleeding, infection, pneumothorax, cardiac puncture, need for unanticipated surgery, lead dislodgement among others. He is aware at that overnight he could deteriorate in which case we would use the temporary external pacer and/or dopamine, and consider implantation of a temporary transvenous pacemaker. However he appears stable with a good escape rhythm and I do not think he needs a temporary transvenous pacemaker at this time. PRN atropine (2) Acute diastolic CHF (congestive heart failure): Code(s): I50.31 - Acute diastolic (congestive) heart failure Status: Acute Assessment and Plan: Patient presents with new acute diastolic heart failure Likely due to bradycardia and heart block Diastolic dysfunction contributes Doubt significant CAD or any component of ACS (3) Right bundle branch block: Code(s): I45.10 - Unspecified right bundle-branch block Status: Acute Assessment and Plan: Longstanding RBBB and left anterior fascicular block suggest longstanding conduction problems. (4) Coronary artery calcification: Code(s): I25.10 - Atherosclerotic heart disease of [place] coronary artery without angina pectoris; I25.84 - Coronary atherosclerosis due to calcified coronary lesion Status: Acute Assessment and Plan: Moderate coronary artery calcification noted on CT scan. No anginal symptoms. Treat asymptomatic CAD with the addition of aspirin Change pravastatin to moderate dose atorvastatin or rosuvastatin, or at least increase the dose of pravastatin. Counseled patient that he likely has a degree of underlying asymptomatic CAD. History of Present Illness History of Present Illness Consult date/time: 03/01/22 13:48 Reason For Visit: New Onset CHF Narrative: Calixto Alanis is a 74-year-old male whom I was asked to see at the request of Dr. Paez for my advice and opinion regarding new onset CHF and arrhythmia in consultation. The patient presented to the emergency room on 02/28/2022 complaining of shortness of breath and swelling for the past 1-2 weeks with some orthopnea, fatigue and weakness He was started on IV Lasix and is improving. His EKGs show second-degree AV block, with underlying bundle branch block, and heart rate generally is in the 40s to 50s. He has had no dizziness or syncope. He denies any chest pain pressure tightness or exertional problems prior to about 2 weeks ago. Otherwise he has been very busy and healthy and was able to a help did post holes for a fence not long ago. He is not taking any beta-blockers. The patient has a history of hypertension diabetes. I actually saw the patient in the past because of a history of PSVT and SVT ablation by Dr. Jimenez on July 2014. He has had no recurrence of any tachyarrhythmias. He had an RBBB and left anterior fascicular block back in 2014, and I noted in my last visit note in August 2014 No high-degree AV block as yet. ? Review of Systems Constitutional: Constitutional: Denies fever(s) Eyes: Eyes: Reports blurry vision (Wears glasses) Comments: Rashid
--- NOTE | 2022-03-01 13:49 | PC.NURSE ---
On 03/01/22, the student, [Brynn Pina], provided care and completed [facility] documentation on this patient. I have reviewed the student's documentation and agree with the findings.
[2022-03-01] MEDS: POTASSIUM CHLORIDE 20 MEQ PACKET (FOR LIQUID) PO (16:36)
--- NOTE | 2022-03-01 23:37 | PCRCNOTE ---
pt refused apnea link
[2022-03-02] VITALS (22 sets, daily range): BP systolic 134–184; BP diastolic 46–92; PULSE 37–98; RESP 14–17; TEMP 36.2–37; O2SAT 93–99
[2022-03-02 05:36] LABS: Basophils Percent Auto 0.5 % (0.2-1.2); Eosinophils Absolute Auto 0.1 K/mm3 (0-0.3); Eosinophils Percent Auto 1.8 % (0-4.4); Hematocrit 44.9 % (42.0-52.0); Hemoglobin 14.8 g/dL (14.0-18.0); Immature Granulocyte Absolute 0.02 K/mm3 (0.00-0.031); Immature Granulocyte Percent A 0.3 % (0-0.5); Lymphocytes Absolute Auto 1.77 K/mm3 (0.9-3.2); Mean Corpuscular Hemoglobin 30.7 pg (26-34); Mean Corpuscular Volume 93.2 fl (80-100); Mean Platelet Volume 10.5 fl (7.4-10.4); Monocytes Absolute Auto 1.1 K/mm3 (0.1-0.6); Monocytes Percent Auto 14.5 % (2.6-8.5); Neutrophils Absolute Auto 4.4 K/mm3 (1.3-6.7); Neutrophils Percent Auto 58.9 % (45.5-73.1); Platelet Count Result 192 k/mm3 (150-375); Red Blood Count 4.82 M/mm3 (4.6-6.20); White Blood Count 7.4 K/mm3 (4.5-10.0)
[2022-03-02 05:49] LABS: Alanine Aminotransferase 26 U/L (6-50); Albumin Level 4.1 g/dL (3.5-5.1); Alkaline Phosphatase 63 U/L (38-126); Anion Gap 9 mmol/L (8-16); Aspartate Amino Transferase 27 U/L (17-59); Bilirubin,Total 1.1 mg/dL (0.2-1.3); Blood Urea Nitrogen 22 mg/dL (9-20); Calcium 9.2 mg/dL (8.4-10.2); Carbon Dioxide 34 mmol/L (22-30); Chloride 98 mmol/L (98-107); Cholesterol 162 mg/dL (0-200); Estimated CRCL calculation 67 ml/min; Estimated Glomerular Filt Rate > 60; Glucose 109 mg/dL (65-110); HDL Direct 39 mg/dL; Potassium 3.6 mmol/L (3.4-5.0); Sodium 141 mmol/L (137-145); Triglycerides 91 mg/dL (<150)
[2022-03-02 06:01] LABS: LDL Cholesterol Direct 94 mg/dL
--- NOTE | 2022-03-02 08:25 | WPDMODSED ---
Moderate Sedation Note-Pt Data Patient Data Diagnosis: Second-degree AV block Mobitz type 2 Present Complaint: Weakness/shortness of breath Procedure to be performed/Plan: Implantation of permanent pacemaker Allergies Allergy/AdvReac Type Severity Reaction Status Date / Time No Known Allergies Allergy Verified 12/07/20 20:22 Home Medications Medication Instructions Recorded Confirmed Type cetirizine 10 mg tablet (Zyrtec) 10 mg PO DAILY PRN Allergy Symptoms 11/18/20 02/28/22 History fluticasone propionate 50 1 spray intranasal DAILY PRN 11/18/20 02/28/22 History mcg/actuation nasal Congestion spray,suspension (Flonase Allergy Relief) pravastatin 20 mg tablet 20 mg PO DAILY 11/18/20 02/28/22 History hydrocodone 5 mg-acetaminophen 325 1 tablet PO Q6H PRN pain #20 tabs 12/08/20 02/28/22 Rx mg tablet furosemide 40 mg tablet 40 mg PO DAILY 02/28/22 02/28/22 History lisinopril 20 mg tablet 20 mg PO DAILY 02/28/22 02/28/22 History potassium chloride 20 mEq 20 meq PO DAILY 02/28/22 02/28/22 History tablet,extended release Current Medications: Active Medications Acetaminophen (Acetaminophen 325 Mg Tablet) 650 mg PO Q6H PRN PRN Reason: Moderate pain Hydrocodone Bitart/Acetaminophen (Hydrocodone/Acetaminophen (*Crx) 5-325 Mg Tablet) 1 tab PO Q6H PRN PRN Reason: Pain Rated 4-6 Hydrocodone Bitart/Acetaminophen (Hydrocodone/Acetaminophen (*Crx) 5-325 Mg Tablet) 1 tab PO Q6H PRN PRN Reason: pain Albuterol (Albuterol Sulfate Neb 2.5 Mg/3 Ml Inh) 2.5 mg INHALATION Q6HRT PRN PRN Reason: Shortness Of Breath Last Admin: 03/01/22 02:00 Dose: 2.5 mg Aspirin (Aspirin 81 Mg Enteric Tablet) 81 mg PO QAM CONSUELO Last Admin: 03/01/22 08:55 Dose: 81 mg Atropine Sulfate (Atropine Sulfate 1 Mg/Ml Vial) 1 mg IV PUSH Q5M PRN PRN Reason: Sustained HR < 35 BPM Bisacodyl (Bisacodyl 5 Mg Tablet Ec) 5 mg PO DAILY PRN PRN Reason: Constipation Enoxaparin Sodium (Enoxaparin 40 Mg/0.4 Ml Syringe) 40 mg SUB-Q DAILY [facility] Last Admin: 03/01/22 08:55 Dose: 40 mg Fluticasone Propionate (Fluticasone Propionate 0.05% Na Spr 16 Gm Btl (*Bkc)) 1 spray NASAL DAILY PRN PRN Reason: Congestion Furosemide (Furosemide Inj 40 Mg/4 Ml Vial) 40 mg IV PUSH BID [facility] Last Admin: 03/01/22 16:33 Dose: 40 mg Hydralazine HCl (Hydralazine Hcl 20 Mg/Ml Vial) 10 mg IV PUSH Q6H PRN PRN Reason: Hypertension Lisinopril (Lisinopril 20 Mg Tablet) 20 mg PO DAILY CONSUELO Loratadine (Loratadine 10 Mg Tablet) 10 mg PO DAILY PRN PRN Reason: Allergy Symptoms Polyethylene Glycol (Polyethylene Glycol 3350 17 Gm Powd.Pack) 17 gm PO Q8HR PRN PRN Reason: Constipation Potassium Chloride (Potassium Chloride 20 Meq Packet (For Liquid)) 20 meq PO BID [facility] Last Admin: 03/01/22 16:36 Dose: 20 meq Pravastatin Sodium (Pravastatin Sodium 20 Mg Tablet) 20 mg PO DAILY [facility] Sedation/Anesthesia: No previous sedation/anesthesia problems (including family history). [facility] Past Medical History Medical History (Updated 03/01/22 @ 15:28 by Ivanna Muir MD) Acute diastolic CHF (congestive heart failure) H/O paroxysmal supraventricular tachycardia Status post ablation by Dr. Jimenez in 2014 Hyperlipidemia Hypertension Right bundle branch block Second degree AV block, Mobitz type II Surgical History Surgical History (Updated 12/07/20 @ 20:37 by Leila Fong RN) S/P prostatectomy Family History Family History (Updated 03/01/22 @ 15:09 by Ivanna Muir MD) Sibling Cerebrovascular accident Father Heart disease Heart failure Kidney disease Social History Social History (Updated 03/01/22 @ 15:10 by Ivanna Muir MD) Social History: , worked for [employer] on [employer]. 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 Smoking packs per day: 1 Smoking cigarettes per day: 20.0 Years smoked: 15 Smoking pack-years: 15.00 Smoking status: Former smoker Alcohol intake: geraldo
[2022-03-02] MEDS: PRAVASTATIN SODIUM 20 MG TABLET PO (08:41)
[2022-03-02] MEDS: lisinopriL 20 MG TABLET PO (08:42)
[2022-03-02] MEDS: ASPIRIN 81 MG ENTERIC TABLET PO (08:42)
--- NOTE | 2022-03-02 11:20 | ECG_ITS ---
Measurements Intervals [place] Rate: 82 P: [place]: 0 QRS: -63 QRSD: 188 T: 97 QT: 493 QTc: 578 Interpretive Statements SINUS RHYTHM WITH ATRIAL ECTOPIC ACTIVITY ELECTRONIC VENTRICULAR PACEMAKER WITH ATRIAL SENSING ABNORMAL RHYTHM ECG COMPARED TO ECG 03/01/2022 13:28:22 PACEMAKER DEVICE HAS NOW BEEN IMPLANTED AND IS APPROPRIATELY SENSING AND VENTRICULAR PACING Electronically Signed On 03-02-2022 15:42:32 CDT by Kev Conley M.D.
--- NOTE | 2022-03-02 11:23 | WPDCARDPROC ---
Cardiac Cath Procedure Note Date of procedure:: 03/02/22 Performing physician:: Kev Conley MD Indication:: symptomatic bradycardia with Mobitz 2 second-degree AV block Brief clinical history:: this is a 76-year-old man with a previous history of SVT which was ablated in the past. He now presents with weakness shortness of breath and has been found to have high-grade Mobitz 2 second-degree AV block Procedure Procedure performed:: implantation of permanent pacemaker Sedation/Medication given:: fentanyl 100 mg Versed 2 mg case start time 934 case end time 11:17 a.m. Access site:: left subclavian Estimated blood loss:: 20 cc Procedure note:: patient was brought to the cardiac catheterization lab in the postabsorptive state and placed supine on the laborer livestock table. The left anterior chest wall was prepped and draped in the usual fashion. Anesthesia was provided with 1% lidocaine infiltrated locally. An incision was then made about 1 in below the clavicle from the midclavicular line to the deltopectoral groove. Electrocautery was used to provide cutaneous hemostasis and using sharp and blunt dissection the subcutaneous tissue was dissected to the level of the prepectoral fascia. Using blunt dissection a pacemaker pocket was created inferior to the incision. This was packed with an antibiotic-soaked 4 x 4. Attention was then turned to venous access. Using the 2 supplied pacemaker safe sheaths the subclavian vein was punctured twice and T J-tip guidewires were advanced under fluoroscopic visualization to the right atrium. Using the safe sheaths the pacemaker leads detailed below were then advanced into the venous circulation to the right atrial position and the sheaths were peeled away. Attention was then turned to the ventricular lead. The stylet was withdrawn and a 3 cc syringe was used to fashion a J-tip stylet was used to directly through the right ventricle out to the PA. The lead was positioned in the apical portion of the right ventricle and the fixation screw was deployed. Appropriate pacing and sensing performance was demonstrated stimulus showed no evidence of extracardiac stimulation. Attention was then turned to the atrial lead. The straight stylet was removed and a preformed J stylet was placed into the lead it was placed into the right atrial appendage position. The fixation screw was deployed and appeared to be in stable position. It was tested using the analyzer with good pacing and sensing performance. Once again a 10 volts stimulation showed no evidence of extracardiac stimulation. The leads were then secured to the base of the pocket using the 2-0 silk ties and the generator was connected to the leads. The entire assembly was placed into the pocket which was then closed in layers 3-0 Vicryl for the subcutaneous tissue fashion skin. The patient was placed under the camera for final x-ray examination it was clear that the atrial lead had dropped into the ventricle. The pocket was then reopened the sutures were cut and removed and the assembly was removed from the pocket. The retention sutures were cut from the sleeve of the atrial lead and it was withdrawn back into the atrium they fixation screw was then also withdrawn. Preformed J stylet was then used to place the lead back into the appendage of the right atrium and fixed into position. A slight tug on the lead however resulted the easily dislodging once again. I used different shaped atrial J stylet with the same results. Following this I decided to place the lead in a alternative location. I took a straight stylet fashioned a hockey-stick tip allowing the to direct the lead into the free wall of the right atrium. While this was held in position the fixation screw was deployed and the lead was then withdrawn. Following this the tip was fixed into position and appeared to remain in that position. Once again the lead was tested and very good pacing and se
--- NOTE | 2022-03-02 13:53 | PM.IMPN ---
Progress Note: A&P Assessment and Plan (1) Bradycardia: Code(s): R00.1 - Bradycardia, unspecified Status: Acute Assessment and Plan: Patient found to have bradycardia on admission. He has a hx of SVT s/p ablation 2013. He does not have known CAD. He is not on rate lowering agents. He denies JOSE or symptoms of such. He refused ApneaLink. 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 EKG on admission showing similar findings except now sinus bradycardia with frequent supraventricular PVC and nonconducted PACs. TSH normal. Cardiology consulted. PM placed today. (2) CHF (congestive heart failure): Qualifiers: Heart failure chronicity: acute Heart failure type: diastolic Qualified Code(s): I50.31 - Acute diastolic (congestive) heart failure Code(s): I50.9 - Heart failure, unspecified Status: Acute Assessment and Plan: Patient with increasing pedal edema and was started on lasix a few days prior to admission. Most likely related to acute CHF exacerbation related to the bradycardia. Trop negative x3. Echo EF 55-60% with Grade II diastolic dysfunction, mild MR and mild pHTN. Cardiology consulted. Daily weights, strict intake and outputs, CHF teaching. Continue IV Lasix. Change to oral (3) Hypertension: Code(s): I10 - Essential (primary) hypertension Status: Acute Assessment and Plan: Patient's blood pressure was reviewed on 03/02 Blood pressure better controlled. Will continue current medications. (4) Hyperlipidemia: Code(s): E78.5 - Hyperlipidemia, unspecified Status: Acute Assessment and Plan: LFTs normal. LDL 94. He does not have CAD. Continue statin. Plan DVT prophylaxis: Lovenox Code status: Full Diet: NPO. Subjective Date/time seen: 03/02/22 13:53 Interval history: 76yo male with hx of SVT s/p ablation, HTN and HLD here for shortness of breath. Patient back from PM placement. He tolerated the procedure well. No CP or SOB but is sore in the left upper chest Exam Narrative: AF 97.9 144/73 91 16 98% ra Gen - NARD Chest - clear anteriorly, nml RR. Left upper chest dressing clean and dry CV - RRR; Tele showing paced rhythm Abd - soft, NT/ND, +BS Ext - trace pedal edema Neuro - nonfocal Skin - warm and dry Objective Data Vital Signs Vital Signs: Vital Signs - 24 hr 03/01/22 14:00 03/01/22 16:05 03/01/22 16:00 Temperature 97.6 F Pulse Rate 61 66 Respiratory Rate 16 Blood Pressure 167/61 H Pulse Oximetry 99 Oxygen Delivery Room Air 03/01/22 16:00 03/01/22 17:58 03/01/22 20:27 Temperature 98.9 F Pulse Rate 47 L 52 L 46 L Respiratory Rate 17 Blood Pressure 154/72 H Pulse Oximetry 100 Oxygen Delivery 03/02/22 00:06 03/01/22 20:00 03/01/22 20:00 Temperature 98.6 F Pulse Rate 44 L 54 L 44 L Respiratory Rate 17 17 Blood Pressure 165/73 H Pulse Oximetry 98 98 Oxygen Delivery Room Air 03/01/22 22:00 03/02/22 00:00 03/02/22 00:00 Temperature Pulse Rate 54 L 43 L 44 L Respiratory Rate 17 Blood Pressure Pulse Oximetry 98 Oxygen Delivery Room Air 03/02/22 02:00 03/02/22 04:49 03/02/22 04:00 Temperature 97.8 F Pulse Rate 37 L 55 L 46 L Respiratory Rate 17 Blood Pressure 152/76 H Pulse Oximetry 99 Oxygen Delivery 03/02/22 04:00 03/02/22 06:00 03/02/22 08:00 Temperature 97.8 F Pulse Rate 55 L 55 L 51 L Respiratory Rate 17 16 Blood Pressure 134/46 L Pulse Oximetry 99 97 Oxygen Delivery Room Air 03/02/22 08:00 03/02/22 08:00 Temperature Pulse Rate 53 L Respiratory Rate Blood Pressure Pulse Oximetry 97 Oxygen Delivery Room Air Intake/Output Intake/Output: Intake & Output 02/27/22 02/28/22 03/01/22 03/02/22 23:59 23:59 23:59 23:59 Intake Total 550 200 Output Total 2400 Balance -1850 200 Meds/Results Medications: Active Medications Generic Name Dose Route St
[2022-03-02] MEDS: SODIUM CHLORIDE 0.9% IV 1,000 ML 50 ML IV CONT (13:58)
[2022-03-02] MEDS: FUROSEMIDE INJ 40 MG/4 ML VIAL IV PUSH (14:04)
[2022-03-02] MEDS: POTASSIUM CHLORIDE 20 MEQ PACKET (FOR LIQUID) PO (14:04)
[2022-03-03] VITALS (9 sets, daily range): BP systolic 136–146; BP diastolic 69–86; PULSE 75–92; RESP 16–18; TEMP 36.3; O2SAT 96–98
[2022-03-03 04:44] LABS: Basophils Percent Auto 0.2 % (0.2-1.2); Eosinophils Absolute Auto 0.1 K/mm3 (0-0.3); Eosinophils Percent Auto 1.1 % (0-4.4); Hematocrit 45.7 % (42.0-52.0); Hemoglobin 15.4 g/dL (14.0-18.0); Immature Granulocyte Absolute 0.03 K/mm3 (0.00-0.031); Immature Granulocyte Percent A 0.3 % (0-0.5); Lymphocytes Absolute Auto 1.37 K/mm3 (0.9-3.2); Lymphocytes Percent Auto 14.9 % (18.3-44.2); Mean Corpuscular HGB Conc 33.7 g/dl (32-36); Mean Corpuscular Hemoglobin 31.7 pg (26-34); Mean Platelet Volume 10.1 fl (7.4-10.4); Monocytes Absolute Auto 0.9 K/mm3 (0.1-0.6); Neutrophils Absolute Auto 6.8 K/mm3 (1.3-6.7); Neutrophils Percent Auto 73.5 % (45.5-73.1); Platelet Count Result 188 k/mm3 (150-375); Red Blood Count 4.86 M/mm3 (4.6-6.20); White Blood Count 9.2 K/mm3 (4.5-10.0)
[2022-03-03 04:58] LABS: Albumin Level 4.2 g/dL (3.5-5.1); Anion Gap 8 mmol/L (8-16); Blood Urea Nitrogen 24 mg/dL (9-20); Carbon Dioxide 28 mmol/L (22-30); Chloride 101 mmol/L (98-107); Estimated CRCL calculation 81 ml/min; Estimated Glomerular Filt Rate > 60; Glucose 125 mg/dL (65-110); Phosphorus 3.5 mg/dL (2.5-4.5); Potassium 4.1 mmol/L (3.4-5.0); Sodium 137 mmol/L (137-145)
[2022-03-03] MEDS: PRAVASTATIN SODIUM 20 MG TABLET PO (09:12)
[2022-03-03] MEDS: ASPIRIN 81 MG ENTERIC TABLET PO (09:13)
[2022-03-03] MEDS: FUROSEMIDE 40 MG TABLET PO (09:13)
[2022-03-03] MEDS: lisinopriL 20 MG TABLET PO (09:13)
[2022-03-03] MEDS: POTASSIUM CHLORIDE 20 MEQ TABLET.ER PO (09:13)
--- NOTE | 2022-03-03 12:20 | PM.PNCARD ---
Progress Note: A&P Assessment and Plan (1) Second degree AV block, Mobitz type II: Code(s): I44.1 - Atrioventricular block, second degree Status: Acute Assessment and Plan: Patient, who has a longstanding underlying RBBB and LAFB, presents with intermittent and now persistent 2-1 heart block, heart rates generally in the 40s to 50s. Dropped down to the upper 30s last night while asleep. No dizziness or syncope I suspect this is the etiology of his congestive heart failure. Status post Biotronik dual chamber pacemaker implantation without complication. Chest x-ray stable without pneumothorax, leads in expected locations post implant. Pacemaker interrogation pending but of stable disposition per hospitalist service. Discussed post implant precautions and to follow written instructions as provided and to notify the office immediately with any questions, concerns, fevers, chills, worsening pain, swelling, redness or drainage. He verbalized understanding and agreed. follow-up as scheduled only wound check. (2) Acute diastolic CHF (congestive heart failure): Code(s): I50.31 - Acute diastolic (congestive) heart failure Status: Acute Assessment and Plan: Patient presents with new acute diastolic heart failure Likely due to bradycardia and heart block Diastolic dysfunction contributes Doubt significant CAD or any component of ACS Stable, euvolemic. Continue current regimen. 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 (4) Coronary artery calcification: Code(s): I25.10 - Atherosclerotic heart disease of [place] coronary artery without angina pectoris; I25.84 - Coronary atherosclerosis due to calcified coronary lesion Status: Acute Assessment and Plan: Moderate coronary artery calcification noted on CT scan. No anginal symptoms. Treat asymptomatic CAD with the addition of aspirin Change pravastatin to moderate dose atorvastatin or rosuvastatin, or at least increase the dose of pravastatin. Counseled patient that he likely has a degree of underlying asymptomatic CAD. Subjective Date/time seen: Date of service:03/03/22 12:20 Follow-up for symptomatic bradycardia and second-degree AV block Mobitz type 2 status post pacemaker no issues overnight. Patient feeling well. Denies chest pain or shortness of breath. Chest x-ray with stable lead placement no pneumothorax. Awaiting pacemaker interrogation. Patient eager to go home. Largely ventricular paced on telemetry. Review of Systems Review of Systems: No fevers, chills or palpitations. Constitutional: Constitutional: Denies fever(s) Eyes: Eyes: Reports blurry vision (Wears glasses) ENT: Denies epistaxis Cardiovascular: Cardiovascular: Denies chest pain, Reports pedal edema, Reports leg edema, Denies lightheadedness, Denies palpitations, Reports dyspnea and Reports dyspnea on exertion Respiratory: Respiratory: Denies chest congestion, Reports dyspnea and Reports dyspnea on exertion Gastrointestinal: Gastrointestinal: Denies abdominal pain and Denies hematochezia Musculoskeletal: Musculoskeletal: Reports no additional musculoskeletal complaints Integumentary/Breasts: Skin/Breast: Reports system reviewed and no additional complaints, except as docu Neurologic: Reports system reviewed and no additional complaints, except as documented, Denies behavioral changes and Denies confusion Psychiatric: Psychiatric: Denies behavioral changes and Denies confusion Endocrine: Endocrine: Denies palpitations Exam Narrative: Very pleasant gentleman sitting upright in bed no apparent distress breathing comfortably speaking in full sentences left arm in sling. Const: General: cooperative, healthy appearing and com
--- NOTE | 2022-03-03 14:58 | PM.DS ---
DS: Admitting Diagnosis Discharge Date 03/03/22 Admitting Diagnosis Shortness of breath DS: Discharge Diagnosis Discharge Diagnosis (1) Bradycardia: Code(s): R00.1 - Bradycardia, unspecified Status: Acute (2) CHF (congestive heart failure): Qualifiers: Heart failure type: diastolic Heart failure chronicity: acute Qualified Code(s): I50.31 - Acute diastolic (congestive) heart failure Code(s): I50.9 - Heart failure, unspecified Status: Acute (3) Hypertension: Code(s): I10 - Essential (primary) hypertension Status: Acute (4) Hyperlipidemia: Code(s): E78.5 - Hyperlipidemia, unspecified Status: Acute DS: Summary Hospital Course Reason for hospitalization: 76yo male with hx of SVT s/p ablation, HTN and HLD here for shortness of breath. Please see H&P for details Hospital Course: Patient found to have bradycardia on admission. He has a hx of SVT s/p ablation 2013. He does not have known CAD. He is not on rate lowering agents. He denies JOSE or symptoms of such. He refused ApneaLink. 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 EKG on admission showing similar findings except now sinus bradycardia with frequent supraventricular PVC and nonconducted PACs. TSH was normal. Patient with increasing pedal edema and was started on lasix a few days prior to admission. Most likely related to acute CHF exacerbation related to the bradycardia. Trop negative x3. Echo EF 55-60% with Grade II diastolic dysfunction, mild MR and mild pHTN. Cardiology consulted and PM placed 03/02/22. He tolerated this procedure well. Patient overall did well and was able to be discharged home on 03/03/2022. Status at Discharge Cognitive/behavioral status at discharge: Stable Time Spent with Patient Time attestation: Total time spent providing and/or coordinating discharge services: 35 minutes Time spent: Greater than 30 minutes Exam Narrative: AF 97.4 136/72 89 18 97% ra Gen - NARD Chest - clear anteriorly, nml RR. Left upper chest dressing clean and dry CV - RRR; Tele showing paced rhythm Abd - soft, NT/ND, +BS Ext - no pedal edema Neuro - nonfocal Skin - warm and dry DS: Data Data Completed and Pending Labs on day of discharge: Labs from last 24 hours 03/03/22 03/03/22 04:31 04:31 WBC 9.2 RBC 4.86 Hgb 15.4 Hct 45.7 MCV 94.0 MCH 31.7 MCHC 33.7 RDW 13.0 Plt Count 188 MPV 10.1 Immature Gran % (Auto) 0.3 Neut % (Auto) 73.5 H Lymph % (Auto) 14.9 L [place] % (Auto) 10.0 H Eos % (Auto) 1.1 Baso % (Auto) 0.2 Lymph # (Auto) 1.37 [place] # (Auto) 0.9 H Eos # (Auto) 0.1 Baso # (Auto) 0.0 Abs Immat Gran (auto) 0.03 Absolute Neuts (auto) 6.8 H Absolute Nucleated RBC 0.0 Nucleated RBC % 0.0 Sodium 137 Potassium 4.1 Chloride 101 Carbon Dioxide 28 Anion Gap 8 BUN 24 H Creatinine 0.90 Estim Creat Clear Calc 81 Estimated GFR > 60 Glucose 125 H Calcium 9.0 Phosphorus 3.5 Magnesium 2.0 Albumin 4.2 Discharge Plan Discharge Attending physician on discharge: Jose Angel Mejias Consulting providers: Ivanna Muir Discharging Clinician: Jose Angel Mejias Anticipated Discharge Date/Time: 03/03/22 15:02 Patient Disposition: Home, Self-Care Activity: other - see discharge instructions Diet: heart healthy Discharge Instructions: [facility] [address] [place] [address] [phone]
--- NOTE | 2022-03-03 16:33 | PC.NURSE ---
On 03/03/22, the student, Margie English , provided care and completed [employer] documentation on this patient. I have reviewed the student's documentation and agree with the findings.
== END 2022-03-03 16:30 | disposition home or self-care (01) | DRG 242 ==
LOC: ANHED 19:25 → ANH2MED 21:04 → ANHIMU 23:34
PROVIDERS: Specialist; Admitting Provider Internal Medicine; Emergency Provider General Practice; PCP Family Medicine; Visit Provider Internal Medicine
PROC: 0JH606Z Insertion of Pacemaker, Dual Chamber into Chest Subcutaneous Tissue and Fascia, Open Approach (ICD-10-PCS; CPT 33208; principal; 2022-03-02 09:00)
DX: I44.1 Atrioventricular block, second degree (principal); I50.31 Acute diastolic (congestive) heart failure; I11.0 Hypertensive heart disease with heart failure; I45.10 Unspecified right bundle-branch block; I25.10 Atherosclerotic heart disease of native coronary artery without angina pectoris; I25.84 Coronary atherosclerosis due to calcified coronary lesion; E78.5 Hyperlipidemia, unspecified; R73.02 Impaired glucose tolerance (oral); Z20.822 Contact with and (suspected) exposure to COVID-19; Z28.21 Immunization not carried out because of patient refusal; Z79.899 Other long term (current) drug therapy; Z87.891 Personal history of nicotine dependence
CPT/HCPCS: 33208; 36415; 71045; 71046; 71275; 80053; 80061; 80069; 83735; 83880; 84443; 84484; 85025; 85380; 85610; 85730; 93005; 93970; 94640; 96372; 96374; 96375; 96376; 99285; A9270; C1779; C1785; C8929; C9803; G0378; J0690; J1650; J1940; J2250; J3010; J7030; J7040; Q9957; Q9967; U0003; U0005